=== PATIENT | female | born 1995 | race Caucasian/White ===

== ENCOUNTER → 2017-03-25 | Outpatient (CLI) | payer MEDICAID | LOC: FIMAGING 07:14 | PROVIDERS: ATTEND Obstetrics & Gynecology | DX: O36.5920 Maternal care for other known or suspected poor fetal growth, second trimester, not applicable or unspecified (principal); O99.332 Smoking (tobacco) complicating pregnancy, second trimester; Z3A.27 27 weeks gestation of pregnancy ==

== ENCOUNTER → 2017-04-08 | Outpatient (CLI) | payer MEDICAID | LOC: FIMAGING 14:39 | PROVIDERS: ATTEND Obstetrics & Gynecology | DX: Z36.4 Encounter for antenatal screening for fetal growth retardation (principal); Z3A.29 29 weeks gestation of pregnancy; O36.5930 Maternal care for other known or suspected poor fetal growth, third trimester, not applicable or unspecified ==

== ENCOUNTER → 2017-04-22 | Outpatient (CLI) | payer MEDICAID | LOC: FIMAGING 13:21 | PROVIDERS: ATTEND Obstetrics & Gynecology | DX: O36.5930 Maternal care for other known or suspected poor fetal growth, third trimester, not applicable or unspecified (principal); Z3A.31 31 weeks gestation of pregnancy ==

== ENCOUNTER 2017-06-01 17:44 | Emergency (ER) | payer MEDICAID ==
[2017-06-01 17:49] VITALS: BP 118/75; PULSE 76; RESP 16; TEMP 97.5; O2SAT 98
--- NOTE | 2017-06-01 18:16 | EDPHY ---
H & P Time Seen by Provider: 06/01/17 18:06 HPI/ROS: CHIEF COMPLAINT: Congestion, headache HISTORY OF PRESENT ILLNESS: Healthy 22 y/o female who is 36 weeks complaining of congestion, cough , and headache. She developed cold symptoms about six days ago. Today, she has a worsening sore throat and persistent facial pain on the left. Associated with increased nasal drainage. Mild cough, no fever. She saw her STEAM PRESS TENDER today, who recommended she visit her primary care provider. The patient does not have a local PCP yet, so she presents here. She denies fever. No chest pain, shortness of breath, vomiting, diarrhea, or other associated symptoms. REVIEW OF SYSTEMS: A 10 point review of systems was performed and is negative with the exception of the elements mentioned in the history of present illness. Past Medical/Surgical History: , currently 36 weeks . Social History: Lives in [place]. Single. Current tobacco use. Smoking Status: Current every day smoker Physical Exam: General Appearance: Alert, pleasant, non-tox appearing Eyes: Pupils equal and round, no conjunctival injection ENT, Mouth: Left-sided maxillary tenderness. Pharyngeal erythema. Mucous membranes moist Neck: Normal inspection, shotty adenopathy Respiratory: Lungs are clear to auscultation Cardiovascular: Regular rate and rhythm Gastrointestinal: Gravid uterus, abd NT Neurological: A&O, nonfocal exam Skin: Warm and dry Extremities: normal inspection Psychiatric: Mood and affect normal Constitutional: Initial Vital Signs Temperature (C) 36.4 C 06/01/17 17:45 Heart Rate 76 06/01/17 17:45 Respiratory Rate 16 06/01/17 17:45 Blood Pressure 118/75 06/01/17 17:45 O2 Sat (%) 98 06/01/17 17:45 O2 Delivery Mode Room Air Allergies/Adverse Reactions: No Known Allergies Allergy (Unverified 06/01/17 17:49) Home Medications: Medication Instructions Recorded Amoxicillin/Clavulanate Pot 875 mg PO BID #20 tab 06/01/17 [Augmentin 875 MG TAB (RX)] Vit27&Calcium/Iron/FA 1 each PO 06/01/17 [] Medical Decision Making ED Course/Re-evaluation: 22 y/o female presents with 6 day history of worsening cold symptoms including headache, congestion, and cough. Exam reveals pharyngeal erythema and maxillary facial tenderness, c/w acute sinusitis. Plan to discharge home in good condition with prescription for Augmentin. She will follow up with her STEAM PRESS TENDER on Saturday. I recommended she avoid OTC medications including Sudafed while . Return precautions discussed. The patient is comfortable with this plan. Departure - Departure Disposition: Home, Routine, Self-Care Clinical Impression: Acute sinusitis Condition: Good Instructions: Amoxicillin/Clavulanate Potassium (By mouth), Sinusitis (ED), Upper Respiratory Infection (ED) Additional Instructions: 1. Take Augmentin as prescribed. 2. You may take Tylenol, 650mg every 4-6 hours as needed for pain relief. Do not take OTC medications such as Sudafed while you are . 3. Follow up with your STEAM PRESS TENDER on Saturday as scheduled. We have also given you a referral to our local primary care provider gis application developer. 4. Return to the emergency department for fever, chest pain, shortness of breath , or other worsening of condition. Referrals: Paul Parker MD [Medical Doctor] - As per Instructions Prescriptions: Amoxicillin/Clavulanate Pot [Augmentin 875 MG TAB (RX)] 875 mg PO BID #20 tab Report Scribed for: Lyla Branch Report Scribed by: Delaney Yoo Date of Report: 06/01/17 Time of Report: 18:20 Physician Review and Approval Statement: 06/01/17 18:20 Portions of this note were transcribed by a medical laboratory technician. I personally performed a history, physical exam, medical decision making, and confirmed accuracy of information the transcribed note.
== END 2017-06-01 18:21 | disposition home or self-care (01) ==
DX: O99.513 Diseases of the respiratory system complicating pregnancy, third trimester (principal); J01.90 Acute sinusitis, unspecified; F17.200 Nicotine dependence, unspecified, uncomplicated; Z3A.36 36 weeks gestation of pregnancy